=== PATIENT | female | born 1995 | race Caucasian/White ===

== ENCOUNTER 2018-09-02 22:06 | Emergency (ER) | payer BC, OTHER ==
[~2018-09-02] VITALS: Ht 157.5 cm; Wt 65.5 kg
[2018-09-02 22:10] VITALS: BP 113/56; PULSE 71; RESP 24; Ht 157.5 cm; Wt 65.5 kg
[2018-09-02] MEDS ORDERED: BENZ-6 PO (22:48)
[2018-09-02] MEDS ORDERED: D-ME473S2 PO (22:48)
[2018-09-02] MEDS ORDERED: ALBU8.5H8 INH (22:48)
--- NOTE | 2018-09-02 23:57 | ERD ---
ER Documentation Chief Complaint Chief Complaint Pt reports dry cough x 2 weeks HPI 23-year-old female presenting with a dry cough x2 weeks. Patient states over the last 2 days is progressively gotten worse and she had episodes of shortness of breath. She feels she goes into coughing spasms. Denies other medical problems. NKDA. Surgical history denies. Social history denies ROS All systems reviewed and are negative except as per history of present illness. Medications Home Meds Active Scripts Dextromethorphan Hb-Promethazine Hcl* (Promethazine DM* Syrup) 473 Ml Syrup, 5 ML PO Q6 PRN for COUGH, #100 ML Prov:AVA LUU PA-C 09/02/18 Benzonatate* (Tessalon Perle*) 100 Mg Capsule, 100 MG PO Q8H PRN for COUGH, #30 CAP Prov:AVA LUU PA-C 09/02/18 Albuterol Sulfate* (Proair HFA*) 8.5 Gm Hfa.aer.ad, 2 PUFF INH Q4, #1 INHALER Prov:AVA LUU PA-C 09/02/18 Allergies Allergies: Coded Allergies: No Known Allergy (Verified Allergy, Mild, 02/28/10) PMhx/Soc History of Surgery: No Anesthesia Reaction: No Hx Neurological Disorder: No Hx Respiratory Disorders: No Hx Cardiac Disorders: No Hx Psychiatric Problems: No Hx Miscellaneous Medical Probl: No Hx Alcohol Use: No Hx Substance Use: No Hx Tobacco Use: No Smoking Status: Never smoker FmHx Family History: No diabetes, No coronary disease, No other Physical Exam Vitals Vital Signs Date Temp Pulse Resp B/P (MAP) Pulse Ox O2 O2 Flow FiO2 Time Delivery Rate 09/02/18 98.3 71 24 113/56 100 22:10 (75) Physical Exam GENERAL: The patient is well-appearing, well-nourished, in no acute distress HEENT: Atraumatic. Conjunctivae are pink. Pupils equal, round, and reactive to light. There is no scleral icterus. Tympanic membranes clear bilaterally. Oropharynx clear. NECK: C-spine is soft and supple. There is no meningismus. There is no cervical lymphadenopathy. CHEST: Clear to auscultation bilaterally. There are no rales, wheezes or rhonchi. HEART: Regular rate and rhythm. No murmurs, clicks, rubs or gallops. Procedures/MDM MDM: 23-year-old male presenting with cough. Patient's breath sounds are within normal limits. Oxygen saturations 100% on room air patient is afebrile. I have low suspicion for pneumonia or respiratory distress. Patient likely has viral cough and is experiencing coughing spasms. Patient is discharged with strict ER precautions and told to follow-up with primary care within 1 to 2 days for close evaluation. Patient is told symptoms change or worsen to return immediately to the ER. All questions answered at discharge Departure Diagnosis: Primary Impression: Cough Condition: Stable Patient Instructions: Cough, Chronic, Uncertain Cause, (Adult) Referrals: BALBIR SANCHEZ (PCP) Additional Instructions: FOLLOW UP WITH YOUR PRIMARY CARE PHYSICIAN TOMORROW.Return to this facility if you are not improving as expected. AVA LUU PA-C Sep 02, 2018 23:57
== END 2018-09-02 23:25 | disposition home or self-care (01) ==
LOC: FTE 22:06
DX: R05 Cough (principal)
CPT/HCPCS: 99283